=== PATIENT | male | born 1955 | race Caucasian/White ===

== ENCOUNTER 2018-06-27 18:28 | Observation (INO) | payer BC, MEDICARE ==
[~2018-06-27] VITALS: Ht 180.3 cm; Wt 103.5 kg
[~2018-06-27 18:28] MED LIST: ASPIR-LOW81 MG PO; BUPIV EP; BUPIVICAINE; CEPHALEXIN500 M1 PO; CIPRO 500MG TA500 MG PO; COUMADIN; COUMADIN 1010 MG/TAB PO; COUMADIN 5MG5 MG/TAB PO; COUMADIN 77.5 MG/TAB PO; COUMADIN4 MG PO; CYMBALTA 60MG60 MG PO; FISH OIL1000 MG PO; FLOMAX 0.40.4 MG/CAP PO; FLOMAX0.4 MG PO; HYDROCODONE/APAP; K-DUR 2020 MEQ PO; LASIX 40MG TABL40 MG PO; LASIX40 MG PO; LORTAB 5/500 501 TAB PO; LOVENOX 4040 MG/0.4 SQ; METHOCARBAMOL750 MG PO; MIRALAX PA17 GM/Dose PO; MORPHINE SULFA100 M1 PO; MS CONTIN 330 MG/TAB PO; MS CONTIN 660 MG/TAB PO; MULTIPLE VITAMI1 CAP PO; NEURONTIN300 MG/CAP PO; OXYCODONE HCL10 MG PO; OXYCODONE HCL20 MG PO; PERCOCET 325 MG1 TAB PO; POTASSIUM20 MEQ PO; ROBAXIN 75750 MG/TAB PO; SENNA8.6 MG PO; ZAROXOLYN2.5 MG PO; ZAROXOLYN5 MG PO; [UNRECOGNIZED DRUG - OTHER]; [UNRECOGNIZED DRUG - OTHER] EP
[2018-06-27 19:23] LABS: BASO % 0.2 % (0.0-2.0); EOS % 0.1 % (0-4.0); GRAN # 15.5 (1.4-6.5); GRAN % 83.7 % (42.2-75.2); HEMATOCRIT 42.8 % (42.0-52.0); HEMOGLOBIN 15.1 g/dl (13.5-18.0); LYMPH # 1.9 (1.2-3.4); LYMPH % 10.2 % (20.0-51.0); MEAN CELL VOLUME 92 fl (80.0-100.0); MEAN CORPUSCULAR HEMOGLOBIN 32 pg (27.0-31.0); MEAN CORPUSCULAR HGB CONC 35 g/dl (33.0-37.0); MEAN PLATELET VOLUME 10.5 fl (7.4-10.4); MONO % 5.4 % (1.7-9.3); PLATELET COUNT 235 K/mm3 (130-400); RED BLOOD COUNT 4.67 M/mm3 (4.20-5.60); REDCELL DISTRIBUTION WIDTH-CV 13.2 % (11.5-14.5)
[2018-06-27 19:36] LABS: INR 2.3 (0.8-3.0); PROTHROMBIN TIME 26.5 SECONDS (9.7-12.8)
[2018-06-27 19:38] LABS: ALBUMIN 3.7 gm/dL (3.5-5.0); BILIRUBIN,TOTAL 0.7 mg/dL (0.0-1.0); CREATININE, serum 0.93 mg/dL (0.66-1.25); TOTAL PROTEIN 7.1 gm/dL (6.4-8.2)
[2018-06-27 19:39] LABS: PARTIAL THROMBOPLASTIN TIME 51.2 SECONDS (26.0-37.0)
[2018-06-27 19:42] LABS: POTASSIUM 2.5 mmol/L (3.4-5.0)
[2018-06-27 20:05] LABS: MAGNESIUM 1.7 mg/dL (1.6-2.3)
[2018-06-27] MEDS ORDERED: MOVANTIK25 MG PO (21:22)
[2018-06-27] MEDS ORDERED: NATURAL E400 IU PO (21:22)
[2018-06-27] MEDS ORDERED: K-DUR20 MEQ PO ×2 (21:23→21:27)
[2018-06-27] MEDS ORDERED: ZAROXOLYN5 MG PO (21:30)
[2018-06-27 21:57] VITALS: BP 122/71; PULSE 79; TEMP 98.4
[2018-06-28 04:09] VITALS: PULSE 71; TEMP 97.5
[2018-06-28 05:41] LABS: HEMATOCRIT 42.3 % (42.0-52.0); MEAN CELL VOLUME 92 fl (80.0-100.0); MEAN CORPUSCULAR HEMOGLOBIN 33 pg (27.0-31.0); MEAN CORPUSCULAR HGB CONC 36 g/dl (33.0-37.0); MEAN PLATELET VOLUME 10.4 fl (7.4-10.4); PLATELET COUNT 187 K/mm3 (130-400); RED BLOOD COUNT 4.62 M/mm3 (4.20-5.60); REDCELL DISTRIBUTION WIDTH-CV 13.7 % (11.5-14.5)
[2018-06-28 06:10] LABS: ALBUMIN 3.7 gm/dL (3.5-5.0); CALCIUM 9.2 mg/dL (8.4-10.2); CREATININE, serum 0.86 mg/dL (0.66-1.25); POTASSIUM 3.1 mmol/L (3.4-5.0); TOTAL PROTEIN 7.2 gm/dL (6.4-8.2)
[2018-06-28 06:19] LABS: EOSINOPHIL 2 % (0-4); LYMPHOCYTE 23 % (20.0-51.0); NEUTROPHILS 65 % (42.0-75.2)
[2018-06-28 07:29] VITALS: BP 121/55; PULSE 76; TEMP 97.6
[2018-06-28 11:12] VITALS: BP 108/53; PULSE 88; TEMP 98.3
[2018-06-28] MEDS ORDERED: PERCOCET 325 MG1 TA3 PO (12:59)
== END 2018-06-28 15:17 | disposition home or self-care (01) ==
LOC: COL.ER 18:28 → SURG 20:59
PROVIDERS: Emergency Medicine; ADMIT Surgery
DX: S22.39XA Fracture of one rib, unspecified side, initial encounter for closed fracture (principal); W18.30XA Fall on same level, unspecified, initial encounter; G89.29 Other chronic pain; M54.9 Dorsalgia, unspecified; F17.210 Nicotine dependence, cigarettes, uncomplicated; Z96.641 Presence of right artificial hip joint; Z79.01 Long term (current) use of anticoagulants
CPT/HCPCS: A9284; G0378; J1170; J2405; J3480; J7030; J7050; J7120; Q9967

== ENCOUNTER → 2018-09-29 | Outpatient (CLI) | payer BC, MEDICARE ==
[~2018-09-29] MED LIST changes: +K-DUR20 MEQ PO; +MOVANTIK25 MG PO; +NATURAL E400 IU PO; +PERCOCET 325 MG1 TA3 PO
== END ==
LOC: COL.RAD 13:47
DX: J84.89 Other specified interstitial pulmonary diseases (principal); R59.0 Localized enlarged lymph nodes; R50.9 Fever, unspecified; Z98.1 Arthrodesis status; J98.4 Other disorders of lung
CPT/HCPCS: Q9967

== ENCOUNTER 2020-12-04 12:26 | Emergency (ER) | payer BC, MEDICARE ==
[~2020-12-04] VITALS: Ht 180.3 cm; Wt 100.0 kg
[2020-12-04 13:11] VITALS: TEMP 98.1
[2020-12-04 18:14] VITALS: BP 134/83; PULSE 93
== END 2020-12-04 18:14 | disposition home or self-care (01) ==
LOC: COL.ER 12:26
DX: S20.212A Contusion of left front wall of thorax, initial encounter (principal); S00.03XA Contusion of scalp, initial encounter; S60.222A Contusion of left hand, initial encounter; S30.0XXA Contusion of lower back and pelvis, initial encounter; G89.29 Other chronic pain; Z79.891 Long term (current) use of opiate analgesic; V89.9XXA Person injured in unspecified vehicle accident, initial encounter; Y92.009 Unspecified place in unspecified non-institutional (private) residence as the place of occurrence of the external cause

== ENCOUNTER → 2022-07-15 | Outpatient (CLI) | payer BC, MEDICARE | LOC: COL.RAD 06:57 | DX: M54.16 Radiculopathy, lumbar region (principal); Z98.1 Arthrodesis status ==

== ENCOUNTER 2023-07-09 10:20 | Emergency (ER) | payer MEDICARE, BC ==
[~2023-07-09] VITALS: Ht 180.3 cm; Wt 104.5 kg
[2023-07-09 10:38] VITALS: TEMP 98.3
[2023-07-09 11:29] LABS: INR 3.4 (0.8-3.0); PROTHROMBIN TIME 36.2 SECONDS (9.7-12.8)
[2023-07-09 11:48] LABS: BASO # 0.1 K/mm3 (0.0-0.2); BASO % 0.8 % (0.0-2.0); EOS # 0.1 K/mm3 (0.0-0.7); EOS % 1.5 % (0.0-4.0); GRAN # 4.4 K/mm3 (1.4-6.5); GRAN % 67.7 % (42.2-75.2); HEMATOCRIT 46.5 % (42.0-52.0); HEMOGLOBIN 13.3 g/dl (13.5-18.0); LYMPH # 1.3 K/mm3 (1.2-3.4); MEAN CELL VOLUME 76 fl (80.0-100.0); MEAN CORPUSCULAR HEMOGLOBIN 22 pg (27-31); MEAN CORPUSCULAR HGB CONC 29 g/dl (33.0-37.0); MONO # 0.6 K/mm3 (0.1-0.6); MONO % 9.5 % (1.7-9.3); PLATELET COUNT 245 K/mm3 (130-400); RED BLOOD COUNT 6.12 M/mm3 (4.20-5.60); REDCELL DISTRIBUTION WIDTH-CV 21.2 % (11.5-14.5)
[2023-07-09 12:03] LABS: ALANINE AMINOTRANSFERASE 46 U/L (0-55); ALBUMIN 3.4 gm/dL (3.4-4.8); ALKALINE PHOSPHATASE 190 U/L (40-150); ANION GAP 12 mmol/L (7-16); AST,SGOT 41 U/L (5-34); BILIRUBIN,TOTAL 0.7 mg/dL (0.2-1.2); BLOOD UREA NITROGEN 19 mg/dL (8-26); CALCIUM 9.4 mg/dL (8.4-10.2); CARBON DIOXIDE 25 mmol/L (23-31); CHLORIDE 100 mmol/L (98-107); CREATININE, serum 0.96 mg/dL (0.72-1.25); GLUCOSE 90 mg/dL (70-99); POTASSIUM 3.6 mmol/L (3.5-4.5); SODIUM 137 mmol/L (136-145); TOTAL PROTEIN 7.1 gm/dL (6.2-8.1)
[2023-07-09 12:12] LABS: TROPONIN-I < 0.010 ng/mL (0.00-0.033)
[2023-07-09 12:55] VITALS: BP 154/98; PULSE 88
== END 2023-07-09 12:55 | disposition home or self-care (01) ==
LOC: COL.ER 10:20
PROVIDERS: Physician Assistant
DX: R07.89 Other chest pain (principal); G89.29 Other chronic pain; M54.9 Dorsalgia, unspecified; I82.90 Acute embolism and thrombosis of unspecified vein; F17.210 Nicotine dependence, cigarettes, uncomplicated; Z79.01 Long term (current) use of anticoagulants; Z97.8 Presence of other specified devices